=== PATIENT | female | born 1985 | race American Indian/Alaskan Native ===

== ENCOUNTER 2018-07-08 17:01 | Emergency (ER) | payer SELFPAY ==
[2018-07-08 17:12] VITALS: BP 120/51
== END 2018-07-08 17:30 | disposition left against medical advice (07) ==
LOC: ED 17:01
DX: Z11.3 Encounter for screening for infections with a predominantly sexual mode of transmission (principal); Z53.21 Procedure and treatment not carried out due to patient leaving prior to being seen by health care provider